=== PATIENT | female | born 1985 | race Caucasian/White ===

== ENCOUNTER 2020-05-06 11:15 | Emergency (ER) | payer BC, SELFPAY ==
[2020-05-06 11:18] VITALS: BP 179/96; PULSE 95; RESP 16; TEMP 36.2; O2SAT 98; BMI 60.5
[2020-05-06 12:29] LABS: Absolute Lymphocyte Count 1.91 X10^3/uL (0.83-4.51); Absolute Neutrophil Count 3.4 X10^3/uL (2.0-7.7); Basophil# 0.01 X10^3/uL; Basophil% 0.2 % (0-1); Eosinophil# 0.19 X10^3/uL; Eosinophils% 3.2 % (0-5); Hematocrit 33.3 % (37-47); Hemoglobin 10.5 g/dL (12.0-15.0); Lymphocyte # 1.91 X10^3/ul (4.0); Lymphocyte % 32.3 % (19-41); Mean Corp Hgb Conc 31.5 g/dL (32-36); Mean Corpuscular Hgb 27.5 pg (27.0-32.0); Mean Corpuscular Volume 87.2 fL (81-99); Monocyte# 0.42 X10^3/uL; Monocyte% 7.1 % (0-10); NRBC Flagged by Analyzer 0 % (0-5); Neutrophil # 3.35 X10^3/uL (2.7-7.7); Neutrophil % 56.7 % (47-70); Platelet Count 383 K/mm3 (150-450); RBC Distribution Width CV 15.4 % (11.6-14.6); RBC Distribution Width SD 48.8 fl (35.1-43.9); Red Blood Count 3.82 M/mm3 (4.2-5.4); White Blood Count 5.9 K/mm3 (4.4-11.0)
--- NOTE | 2020-05-06 12:50 | ED.VISSUMM ---
- ER Visit Summary Date of Service: 05/06/20 Chief Complaint: Possible PICC line infection History of Present Illness: The patient is a 34 F who presents with possible PICC line infection that began yesterday. Patient has a PICC line in her left upper arm for an infection in her back. Patient is getting Ancef through this. Patient states that last night she noted some redness around the dressing. Patient states she noted some watery drainage today. Patient denies any fevers or chills. Patient denies any nausea or vomiting. Patient denies any increase in pain. Patient describes her pain as throbbing. Patient states nothing makes it better or worse. Physical Examination: Vital signs are stable. Patient is afebrile. Patient is in no acute distress. Skin is warm and dry. There is erythema along the margins of the dressing. There is very minimal erythema at the insertion site of the PICC line. There is no active discharge or drainage. The erythema along the margins of the dressing does not communicate with the insertion site. Cranial nerves II through XII were intact. There are no focal motor or sensory deficits noted. There is good range of motion of the left upper extremity. Heart was regular rate and rhythm. Lungs are clear and equal bilaterally. Test Results: CBC and comprehensive metabolic profile were obtained were within normal limits. Emergency Department Course and Treatment: This appears to be more of a contact dermatitis secondary to the tape along the edges of her dressing. This does not appear to be an infection of the line itself. Patient is afebrile and has no systemic signs of infection. Patient is on Ancef which covers skin bacteria. Dressing was changed. Patient was instructed to follow-up with her primary care physician in 3 to 5 days when she gets home. Patient was instructed return if worse in any way. Patient understood and was agreeable with the plan. All questions were answered. Disposition: Discharge home Impression: Contact dermatitis This note was generated with [employer] dictation software. It may contain incorrect words, spelling, and punctuation that were not noted in review of the chart prior to signing ED Disposition - Plan for ED Patient: Disposition: Home or Assisted Living Diagnosis: Contact dermatitis Instructions: ED Contact Dermatitis Referrals: [facility] [Other] - 3-5 Days
[2020-05-06 13:20] LABS: ALB/GLOB Ratio 0.7 RATIO (0.9-2.4); AST(SGOT) 25 U/L (15-37); Alanine Aminotransfer ALT/SGPT 25 U/L (13-56); Albumin, Serum 3.4 g/dL (3.2-5.0); Alkaline Phosphatase 179 U/L (45-117); Anion Gap 6 (5-15); BUN 16 mg/dL (7-18); BUN/Creat Ratio 17.7 RATIO (10-20); Calcium,Total 9.3 mg/dL (8.5-10.1); Chloride 105 mmol/L (98-107); EST Glomerular Filtration Rate 75 mL/min (>60); Est Glom Filt Rate - Afr Amer 90 mL/min (>60); Globulin 4.6 g/dL (2.2-4.2); Glucose 136 mg/dL (74-106); Potassium 3.7 mmol/L (3.5-5.1); Sodium Level 138 mmol/L (136-145)
[2020-05-06 13:35] VITALS: BP 158/88; PULSE 88; RESP 16; TEMP 36.9; O2SAT 100
--- NOTE | 2020-05-06 15:02 | ED.RN ---
PT PICC LINE DRESSING CHANGE. COVERED WITH LARGE TEGADERM WITH CHG. PT TOLERATED WELL. AREA REDDENED PRIOR TO DRESSING CHANGE.
== END 2020-05-06 15:03 | disposition home or self-care (01) ==
PROVIDERS: Emergency Provider Emergency Medicine
DX: L25.9 Unspecified contact dermatitis, unspecified cause (principal); E66.9 Obesity, unspecified; M54.9 Dorsalgia, unspecified
CPT/HCPCS: 80053; 85025; 87040; 99283